=== PATIENT | male | born 1955 | race Caucasian/White ===

== ENCOUNTER 2023-07-04 18:58 | Inpatient (IN) | payer OTHER ==
[~2023-07-04] VITALS: Ht 182.9 cm; Wt 103.6 kg
[2023-07-04] MEDS ORDERED: Ondansetron HCl 2 MG / ML 2ML Vial ONE (19:24)
[2023-07-04] MEDS ORDERED: Ondansetron HCl 2 MG / ML 2ML Vial IV PRN ×2 (19:30→22:45)
[2023-07-04 19:39] LABS: BASOPHILS ABSOLUTE AUTO 0.18 K/mm3 (0.00-0.23); BASOPHILS PERCENT AUTO 1 % (0-2); EOSINOPHILS ABSOLUTE AUTO 0.06 K/mm3 (0.00-0.68); EOSINOPHILS PERCENT AUTO 0 % (0-6); Hematocrit 42.3 % (37.0-53.0); Hemoglobin 14.2 g/dL (13.5-17.5); IMMATURE GRAN ABSOLUTE AUTO 0.15 K/mm3 (0.00-0.10); IMMATURE GRAN PERCENT AUTO 1 % (0-1); LYMPHOCYTES ABSOLUTE AUTO 2.09 K/mm3 (0.84-5.20); LYMPHOCYTES PERCENT AUTO 7 % (21-46); MONOCYTES ABSOLUTE AUTO 3.18 K/mm3 (0.16-1.47); MONOCYTES PERCENT AUTO 11 % (4-13); Mean Corpuscular HGB 32.2 pg (26.0-34.0); Mean Corpuscular HGB Conc 33.6 g/dL (31.5-36.5); Mean Corpuscular Volume 96 fL (80-100); Mean Platelet Volume 9.7 fL (9.1-12.4); NEUTROPHILS ABSOLUTE AUTO 22.66 K/mm3 (1.96-9.15); NEUTROPHILS PERCENT AUTO 80 % (41-73); Platelet Count 696 K/mm3 (150-400); RDW Coefficient Variation 14.1 % (11.7-14.2); RDW Standard Deviation 49.8 fL (35.1-46.3); Red Blood Cell Count 4.41 M/mm3 (4.30-5.90); White Blood Cell Count 28.32 K/mm3 (4.00-11.30)
[2023-07-04 19:41] LABS: Source, Urine Clean Catch
[2023-07-04 19:44] LABS: Appearance, Urine Hazy (Clear); Bilirubin, Urine Neg (Neg); Blood, Urine 5+ (Neg); Color, Urine Yellow (P-Yellow); Glucose Qualitative, Urine 2+ (Neg); Ketones, Urine Neg (Neg); Leukocyte Esterase, Urine 3+ (Neg); Nitrite, Urine Pos (Neg); Protein, Urine 3+ (Neg); Specific Gravity, Urine 1.015 (1.003-1.022); Urobilinogen, Urine NORM (Normal)
[2023-07-04 19:51] LABS: Bacteria Many /hpf; Squamous Epithelial Cells Rare /hpf (Few); White Blood Cells, Urine 25-50 /hpf (0-5)
[2023-07-04] MEDS ORDERED: NS 1,000 ML IV SCH ×4 (20:05→22:50)
[2023-07-04] MEDS ORDERED: CefTRIAXone Sodium 1,000 MG in NS 50 ML IV ONE (20:10)
[2023-07-04 20:38] LABS: Albumin, Blood 3.4 g/dL (3.4-5.0); Albumin/Globulin Ratio 0.8 (0.8-1.8); Bilirubin, Total 0.6 mg/dL (0.1-1.0); Bun/Creatinine Ratio 18.8 (12.0-20.0); Calcium, Blood 9.6 mg/dL (8.5-10.1); Creatinine, Blood 2.02 mg/dL (0.60-1.20); Globulin, Blood 4.4 g/dL (2.2-4.0); Potassium, Blood 4.7 mmol/L (3.5-5.5); Total Protein, Blood 7.8 g/dL (6.4-8.2)
[2023-07-04] MEDS ORDERED: CEFP200 PO (21:14)
[2023-07-04] MEDS ORDERED: Oxybutynin Chlor5 M1 PO (21:15)
[2023-07-04] MEDS ORDERED: CYMBALTA20 M2 PO (21:15)
[2023-07-04] MEDS ORDERED: ATENOLOL25 MG PO (21:15)
[2023-07-04] MEDS ORDERED: Primidone50 MG PO (21:16)
[2023-07-04] MEDS ORDERED: TAMSULOSIN HCL0.4 M1 PO (21:16)
[2023-07-04] MEDS ORDERED: TRAZ50 PO (21:16)
[2023-07-04] MEDS ORDERED: LOSA50 PO (21:17)
[2023-07-04] MEDS ORDERED: JARDIANCE25 MG PO (21:17)
[2023-07-04] MEDS ORDERED: [UNRECOGNIZED DRUG - CODE] SL (21:17)
[2023-07-04] MEDS ORDERED: OXYC5 PO (21:17)
[2023-07-04] MEDS ORDERED: ATORVASTATIN CA20 MG PO (21:17)
[2023-07-04] MEDS ORDERED: METFORMIN HCL500 M3 PO (21:18)
[2023-07-04 21:38] LABS: Influenza A, PCR NEGATIVE (NEGATIVE); Influenza B, PCR NEGATIVE (NEGATIVE); Resp Syncytial Virus, PCR NEGATIVE (NEGATIVE); SARS-Cov-2 (COVID-19) PCR, MMC NEGATIVE (NEGATIVE)
[2023-07-04] MEDS ORDERED: Acetaminophen 325 MG TABLET PO PRN (22:45)
[2023-07-04] MEDS ORDERED: FentaNYL Citrate 50 MCG/ML 2 ML Injection IV PRN (22:45)
[2023-07-04] MEDS ORDERED: Enoxaparin 40 MG/0.4 ML SYR SC SCH (23:00)
[2023-07-04 23:09] VITALS: BP 142/93
[2023-07-04 23:30] LABS: International Normalized Ratio 1.07; Prothrombin Time Results 11.4 Sec (9.7-11.5)
[2023-07-05] MEDS ORDERED: OxyCODONE HCL 5 MG TAB PO PRN (00:15)
[2023-07-05] MEDS ORDERED: TraZODone HCl 50 MG Tab PO SCH (00:20)
[2023-07-05] MEDS ORDERED: Acetaminophen 325 MG TABLET PO ONE (00:20)
[2023-07-05 03:01] VITALS: BP 115/72
[2023-07-05 04:41] LABS: BASOPHILS ABSOLUTE AUTO 0.23 K/mm3 (0.00-0.23); BASOPHILS PERCENT AUTO 1 % (0-2); EOSINOPHILS PERCENT AUTO 0 % (0-6); Hematocrit 36.8 % (37.0-53.0); Hemoglobin 11.9 g/dL (13.5-17.5); IMMATURE GRAN ABSOLUTE AUTO 0.23 K/mm3 (0.00-0.10); IMMATURE GRAN PERCENT AUTO 1 % (0-1); LYMPHOCYTES ABSOLUTE AUTO 3.27 K/mm3 (0.84-5.20); LYMPHOCYTES PERCENT AUTO 10 % (21-46); MONOCYTES ABSOLUTE AUTO 5.37 K/mm3 (0.16-1.47); MONOCYTES PERCENT AUTO 17 % (4-13); Mean Corpuscular HGB 31.6 pg (26.0-34.0); Mean Corpuscular HGB Conc 32.3 g/dL (31.5-36.5); Mean Corpuscular Volume 98 fL (80-100); Mean Platelet Volume 9.9 fL (9.1-12.4); NEUTROPHILS PERCENT AUTO 71 % (41-73); Platelet Count 551 K/mm3 (150-400); RDW Coefficient Variation 14.3 % (11.7-14.2); RDW Standard Deviation 51.6 fL (35.1-46.3); Red Blood Cell Count 3.76 M/mm3 (4.30-5.90)
[2023-07-05 05:00] LABS: Albumin, Blood 2.9 g/dL (3.4-5.0); Albumin/Globulin Ratio 0.7 (0.8-1.8); Bilirubin, Total 0.4 mg/dL (0.1-1.0); Bun/Creatinine Ratio 15.7 (12.0-20.0); Calcium, Blood 8.6 mg/dL (8.5-10.1); Creatinine, Blood 2.04 mg/dL (0.60-1.20); Potassium, Blood 4.6 mmol/L (3.5-5.5); Total Protein, Blood 6.9 g/dL (6.4-8.2)
--- NOTE | 2023-07-05 05:28 | NUR ---
SHIFT SUMMARY NOC PT A/O X 4. PLEASANT AND COOPERATIVE WITH CARE. VSS. PT AFEBRILE. ADMIT FROM ED WITH SEPSIS/UTI. PT GOT TO FLOOR AND WAS HAD SEVERE CHILLS. WARM BLANKETS AND HEAT IN ROOM TURNED UP WHICH HELPED RELIEVE CHILLS. PT HAD L URETER STENT PLACE 06/15/23. PT WAS ABLE TO TRANSFER FROM [facility] WITH 2[facility], BUT AGREED BEDREST IS BETTER PLAN DUE TO EXTREME WEAKNESS. PT USING BEDSIDE URINAL INDEPENDENTLY. INFUSION OF NS @ 100 ML/HR X 1 BAG RUNNING. PT HOME PAIN RX AND SLEEPING RX ORDERED BY HOSPITALIST. PT WAS NPO UPON ADMIT TO FLOOR DUE TO ASPIRATION CONCERNS FROM N/V EARLIER IN DAY. PT HAS DENIED N/V DURING ASSESSMENT. NPO ORDER COMPLETED AND CARB CONSISTENT DIET ORDERED. PT ON TELE RUNNING SINUS TACH IN LOW 100'S AND 110'S. PT ON RA BASELINE BUT WITH TACHYPNEA PT FEELS MORE COMFORATABLE ON 2L/NC. PT HAS REDNESS IN BILATERAL GROIN FOLDS REPORTED TO BE FROM HUNTING IN GOTTI AND MOISTURE EXPOSURE. PT CURRENTLY RESTING WITH BED IN LOWEST POSITION. AND CALL LIGHT WITHIN REACH.
[2023-07-05 07:30] VITALS: BP 112/82
[2023-07-05] MEDS ORDERED: Insulin Human Lispro 100 Units/ML 3ML Syringe SC SCH (07:30)
[2023-07-05] MEDS ORDERED: DULoxetine HCL 20 MG Cap DR PO SCH (09:00)
[2023-07-05] MEDS ORDERED: Atenolol 25 MG Tab PO SCH (09:00)
[2023-07-05] MEDS ORDERED: Tamsulosin HCl 0.4 MG Cap PO SCH (09:00)
[2023-07-05] MEDS ORDERED: CefTRIAXone Sodium 1,000 MG in NS 100 ML IV SCH (09:00)
[2023-07-05] MEDS ORDERED: oxyBUTYnin chloride 5 MG TAB PO SCH (09:00)
--- NOTE | 2023-07-05 10:52 | NUR ---
CALL PLACED TO DR KENNEY, POSITIVE BLOOD AND URINE CX. NO NEW ORDERS, DOC STATED PATIENT SHOULD BE COVERED BY CURRENT ABX.
[2023-07-05 14:55] VITALS: BP 114/71
--- NOTE | 2023-07-05 16:36 | NUR ---
SHIFT SUMMARY PATIENT TOLERATING ABX WELL, EATING AND DRINKING ADEQUATELY. VOIDING USING URINAL. RED RASH TO GROIN, ANTIFUNGAL POWDER ORDERED. FAMILY IN TO SEE PATIENT THIS SHIFT. A/O X4. AGREEABLE TO CARES. MINIMAL C/O PAIN. VSS, AFEBRILE. ONE EPISODE OF TREMORS THIS SHIFT, STATES TO HAVE BASELINE FAMILIAL TREMOR. ABLE TO MAKE NEEDS KNOWN, CALL LIGHT IN REACH, CARES ONGOING.
[2023-07-05 20:31] VITALS: BP 115/72
[2023-07-05] MEDS ORDERED: Miconazole Nitrate 2% 85 GM PWD TOP SCH (21:00)
[2023-07-05] MEDS ORDERED: Primidone 50 MG Tab PO SCH (21:00)
[2023-07-06 03:18] VITALS: BP 128/83
[2023-07-06 04:33] LABS: BASOPHILS ABSOLUTE AUTO 0.19 K/mm3 (0.00-0.23); BASOPHILS PERCENT AUTO 1 % (0-2); EOSINOPHILS ABSOLUTE AUTO 0.34 K/mm3 (0.00-0.68); EOSINOPHILS PERCENT AUTO 1 % (0-6); IMMATURE GRAN ABSOLUTE AUTO 0.15 K/mm3 (0.00-0.10); IMMATURE GRAN PERCENT AUTO 1 % (0-1); LYMPHOCYTES ABSOLUTE AUTO 2.54 K/mm3 (0.84-5.20); LYMPHOCYTES PERCENT AUTO 10 % (21-46); MONOCYTES ABSOLUTE AUTO 3.99 K/mm3 (0.16-1.47); MONOCYTES PERCENT AUTO 15 % (4-13); Mean Corpuscular HGB Conc 32.4 g/dL (31.5-36.5); Mean Corpuscular Volume 99 fL (80-100); Mean Platelet Volume 9.7 fL (9.1-12.4); NEUTROPHILS PERCENT AUTO 73 % (41-73); Platelet Count 506 K/mm3 (150-400); RDW Coefficient Variation 14.4 % (11.7-14.2); RDW Standard Deviation 51.9 fL (35.1-46.3); Red Blood Cell Count 3.75 M/mm3 (4.30-5.90); White Blood Cell Count 26.21 K/mm3 (4.00-11.30)
[2023-07-06 04:56] LABS: Albumin, Blood 2.7 g/dL (3.4-5.0); Albumin/Globulin Ratio 0.6 (0.8-1.8); Bilirubin, Total 0.3 mg/dL (0.1-1.0); Bun/Creatinine Ratio 14.6 (12.0-20.0); Calcium, Blood 9.1 mg/dL (8.5-10.1); Creatinine, Blood 2.12 mg/dL (0.60-1.20); Globulin, Blood 4.5 g/dL (2.2-4.0); Potassium, Blood 4.3 mmol/L (3.5-5.5); Total Protein, Blood 7.2 g/dL (6.4-8.2)
--- NOTE | 2023-07-06 05:20 | NUR ---
SHIFT SUMMARY NOC PT A/O X 4. PLEASANT AND COOPERATIVE WITH CARE. VSS. PT HAD LOW GRADE FEVER AND GIVEN TYLENOL PT ON TELE RUNNING SINUS RHYTHM IN 80'S. PT ON RA BASELINE BUT PREFERS 2L/NC FOR SLEEPING. PT L FLANK PAIN MANAGED PER EMAR. PT STILL REPORTS FEELING VERY WEAK AND PREFERS BEDSIDE URINAL. PT CURRENTLY RESTING WITH BED IN LOWEST POSITION, AND CALL LIGHT WITHIN REACH.
[2023-07-06 07:29] VITALS: BP 134/80
[2023-07-06 15:26] VITALS: BP 126/84
--- NOTE | 2023-07-06 18:00 | NUR ---
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
[2023-07-06 19:32] VITALS: BP 137/86
[2023-07-06] MEDS ORDERED: Lactobacil 2-S.Thermo-Bifido 1 1 Cap PO SCH (21:00)
[2023-07-07 04:25] VITALS: BP 129/83
--- NOTE | 2023-07-07 04:25 | NUR ---
SHIFT SUMMARY ADMITTED FOR UTI/SEPSIS. FULL CODE. IV ANTIB RX ARE SCHEDULED. ADA DIET, ACHS CBG'S. TELEMETRY: NSR @ 74 BPM. ON RA, 2 LPM O2 @ HS. A&O X4. INDEPENDENT. HE DENIED PAIN THIS SHIFT. NO NEW CONCERNS THIS SHIFT.
[2023-07-07 05:04] LABS: Hematocrit 35.3 % (37.0-53.0); Hemoglobin 11.7 g/dL (13.5-17.5); Mean Corpuscular HGB 32.1 pg (26.0-34.0); Mean Corpuscular HGB Conc 33.1 g/dL (31.5-36.5); Mean Corpuscular Volume 97 fL (80-100); Platelet Count 479 K/mm3 (150-400); RDW Coefficient Variation 14.1 % (11.7-14.2); RDW Standard Deviation 50.1 fL (35.1-46.3); Red Blood Cell Count 3.64 M/mm3 (4.30-5.90); White Blood Cell Count 19.57 K/mm3 (4.00-11.30)
[2023-07-07 05:57] LABS: Albumin, Blood 2.7 g/dL (3.4-5.0); Anion Gap 9 mmol/L (3-11); Blood Urea Nitrogen 32 mg/dL (8-24); Bun/Creatinine Ratio 15.5 (12.0-20.0); CO2, Blood 24 mmol/L (21-32); Calcium, Blood 9.5 mg/dL (8.5-10.1); Chloride, Blood 108 mmol/L (98-108); Creatinine, Blood 2.06 mg/dL (0.60-1.20); Glomerular Filtration Rate 34 (60-); Glucose, Blood 119 mg/dL (70-99); Phosphorus, Blood 3.6 mg/dL (2.5-4.9); Potassium, Blood 4.3 mmol/L (3.5-5.5); Sodium, Blood 137 mmol/L (136-145)
[2023-07-07 07:30] VITALS: BP 119/78
[2023-07-07] MEDS ORDERED: Empagliflozin 10 MG TAB PO SCH (09:00)
[2023-07-07] MEDS ORDERED: Polyethylene Glycol 3350 17 gm PO PRN (13:45)
[2023-07-07] MEDS ORDERED: Docusate Sodium/Senna 1 Tab PO SCH (14:00)
[2023-07-07 16:31] VITALS: BP 134/88
--- NOTE | 2023-07-07 17:50 | NUR ---
NO ACUTE CHANGES, ALERT AND ORIENTED TO ALL, AMBULATED IN HALLS, STEADY GAIT. PER DR KENNEY WAITING FOR FINAL REPORT FROM THE , CULTERS POSITIVE. CASE MANAGEMENT SPOKE WITH PATIENT SO AND PATIENT LIVE IN [place]. TELEMETRY DC. CALL LIGHT WITH IN REACH, WILL RELAY TO PM RN
[2023-07-07 19:35] VITALS: BP 137/86
--- NOTE | 2023-07-08 04:29 | NUR ---
SHIFT SUMMARY. PATIENT IS AOX4. INDEPENDENT IN ROOM. PATIENT ADMITTED WITH SEVERE SEPSIS. PATIENT IS PLEASANT AND COOPERATIVE WITH CARE. PATIENT SLEPT WELL T/O NIGHT. PATIENT C/O SUSANNA; PAIN ASSESSED AND MEDICATED PER EMAR X1. PATIENT SLEPT T/O NIGHT WITH RESPIRATIONS EQUAL AND UNLABORED. PATIENT REPORTS CONCERNS OF BEING DISCHARGED BEFORE HE IS WELL ENOUGH. PATIENTS BED IS LOCKED IN THE LOWEST POSITION WITH CALL LIGHT IN REACH. NO S/S OF DISTRESS NOTED. CARE IS ONGOING.
[2023-07-08 04:34] VITALS: BP 126/88
[2023-07-08 05:53] LABS: Hematocrit 37.4 % (37.0-53.0); Hemoglobin 12.6 g/dL (13.5-17.5); Mean Corpuscular HGB 31.8 pg (26.0-34.0); Mean Corpuscular HGB Conc 33.7 g/dL (31.5-36.5); Mean Corpuscular Volume 94 fL (80-100); Platelet Count 494 K/mm3 (150-400); RDW Coefficient Variation 13.9 % (11.7-14.2); RDW Standard Deviation 48.4 fL (35.1-46.3); Red Blood Cell Count 3.96 M/mm3 (4.30-5.90); White Blood Cell Count 14.49 K/mm3 (4.00-11.30)
[2023-07-08 06:33] LABS: Albumin, Blood 2.8 g/dL (3.4-5.0); Anion Gap 10 mmol/L (3-11); Blood Urea Nitrogen 34 mg/dL (8-24); Bun/Creatinine Ratio 16.7 (12.0-20.0); CO2, Blood 24 mmol/L (21-32); Calcium, Blood 9.8 mg/dL (8.5-10.1); Chloride, Blood 106 mmol/L (98-108); Creatinine, Blood 2.03 mg/dL (0.60-1.20); Glomerular Filtration Rate 35 (60-); Glucose, Blood 129 mg/dL (70-99); Phosphorus, Blood 4.1 mg/dL (2.5-4.9); Potassium, Blood 4.4 mmol/L (3.5-5.5); Sodium, Blood 136 mmol/L (136-145)
[2023-07-08 07:32] VITALS: BP 126/88
[2023-07-08] MEDS ORDERED: NS 500 ML IV ONE (10:13)
[2023-07-08] MEDS ORDERED: Bisacodyl 5 MG TabEC PO PRN (11:40)
[2023-07-08] MEDS ORDERED: Bisacodyl 10 MG Supp PR PRN (11:40)
[2023-07-08] MEDS ORDERED: Witch Hazel/Glycerin PADS TOP PRN (12:20)
[2023-07-08 16:52] VITALS: BP 131/76
--- NOTE | 2023-07-08 18:35 | NUR ---
SUMMARY- PT A/O X 4, INDEPENDANT IN ROOM. AMBULATES TO BATHROOM, VOIDING BUT WAS UNSURE HE WAS EMPTYING HIS BLADDER. BLADDER SCAN AT 1830 WAS 208ML. TROUBLE HAVING BM TODAY, GIVEN LAXATIVE. GOT INITIAL STOOL IN RECTAL VAULT OUT WITH SOME RADHA ASSIST. AND THINKS THINGS ARE MOVING IN THE RIGHT DIRECTION AFTER LAXATIVE, BUT REQUESTED TUCKS PADS FOR HEMORROID RELEIF. PT HAVING MIN DISCOMFORT L URETER AREA, DECLINED TO HAVE PAIN MED ALL DAY. AWAITING BLOOD CX. WILL REPORT TO NOC RN
[2023-07-08 20:36] VITALS: BP 138/75
[2023-07-09 05:11] LABS: BASOPHILS ABSOLUTE AUTO 0.19 K/mm3 (0.00-0.23); BASOPHILS PERCENT AUTO 2 % (0-2); EOSINOPHILS ABSOLUTE AUTO 0.57 K/mm3 (0.00-0.68); EOSINOPHILS PERCENT AUTO 4 % (0-6); Hematocrit 38.3 % (37.0-53.0); Hemoglobin 12.6 g/dL (13.5-17.5); IMMATURE GRAN ABSOLUTE AUTO 0.06 K/mm3 (0.00-0.10); IMMATURE GRAN PERCENT AUTO 1 % (0-1); LYMPHOCYTES ABSOLUTE AUTO 4.07 K/mm3 (0.84-5.20); LYMPHOCYTES PERCENT AUTO 31 % (21-46); MONOCYTES ABSOLUTE AUTO 1.82 K/mm3 (0.16-1.47); MONOCYTES PERCENT AUTO 14 % (4-13); Mean Corpuscular HGB 31.7 pg (26.0-34.0); Mean Corpuscular HGB Conc 32.9 g/dL (31.5-36.5); Mean Corpuscular Volume 96 fL (80-100); Mean Platelet Volume 9.5 fL (9.1-12.4); NEUTROPHILS ABSOLUTE AUTO 6.37 K/mm3 (1.96-9.15); NEUTROPHILS PERCENT AUTO 49 % (41-73); Platelet Count 470 K/mm3 (150-400); RDW Coefficient Variation 13.9 % (11.7-14.2); RDW Standard Deviation 49.5 fL (35.1-46.3); Red Blood Cell Count 3.98 M/mm3 (4.30-5.90); White Blood Cell Count 13.08 K/mm3 (4.00-11.30)
[2023-07-09 05:33] LABS: Bun/Creatinine Ratio 17.1 (12.0-20.0); Calcium, Blood 9.8 mg/dL (8.5-10.1); Creatinine, Blood 2.4 mg/dL (0.60-1.20); Potassium, Blood 4.5 mmol/L (3.5-5.5)
[2023-07-09 05:39] VITALS: BP 114/83
[2023-07-09 07:35] VITALS: BP 115/80
--- NOTE | 2023-07-09 07:42 | NUR ---
MARKETING PROPOSAL COORDINATOR SUMMARY PT A&O X4, PLEASANT AND TALKATIVE. PT INDEPENDENT IN STACIE ROOM AND HALLWAYS. PT DID NOT REQUIRE HS S/S INSULIN COVERAGE. PT DECLINED ANY FURTHER BOWEL CARE REPORTING HE WAS NOT UNCOMFORTABLE AND WANTED TO WAIT, SUPPOSITIORY WAS OFFERED TONIGHT AND HE DECLINED. PT C/O L SIDE FLANK/ABDOMINAL PAIN. MEDICATED WITH OXY 5MG X 1 WITH GOOD RELIEF. PT SLEPT THROUGH THE NIGHT WITH NO ACUTE CHANGES. 07/09/23 JESSICA TIJERINA RN
[2023-07-09] MEDS ORDERED: ACET325 PO (10:20)
[2023-07-09] MEDS ORDERED: CEPH500 PO (10:20)
[2023-07-09] MEDS ORDERED: VISBIOME 112.51 EACH PO (10:20)
--- NOTE | 2023-07-09 11:57 | NUR ---
DISCHARGE NOTE: DISCUSSED DISCHARGE WITH PATIENT. HIS IV WAS REMOVED AND HIS BELONGINGS COLLECTED. DISCHARGE PAPERWORK PROVIDED AND PATIENT CALLED FOR HIS RIDE. PATIENT DECLINED TO BE WHEELED DOWN VIA WHEELCHAIR. NO SIGNS OR SYMPTOMS OF DISTRESS DURING DISCHARGE.
== END 2023-07-09 11:53 | disposition home or self-care (01) | DRG 698 ==
LOC: ER 18:58 → MEDS 18:59 → ENPENDDIS 07-09 10:43 → MEDS 07-09 11:53
PROVIDERS: Emergency Medicine; Family Medicine; Internal Medicine; Nurse Practitioner; ADMIT Internal Medicine
DX: T83.592A Infection and inflammatory reaction due to indwelling ureteral stent, initial encounter (principal); A41.50 Gram-negative sepsis, unspecified; R65.20 Severe sepsis without septic shock; N18.4 Chronic kidney disease, stage 4 (severe); N12 Tubulo-interstitial nephritis, not specified as acute or chronic; E11.22 Type 2 diabetes mellitus with diabetic chronic kidney disease; I12.9 Hypertensive chronic kidney disease with stage 1 through stage 4 chronic kidney disease, or unspecified chronic kidney disease; N40.0 Benign prostatic hyperplasia without lower urinary tract symptoms; E78.5 Hyperlipidemia, unspecified; Z87.442 Personal history of urinary calculi; Z87.19 Personal history of other diseases of the digestive system; Z79.899 Other long term (current) drug therapy; Z79.84 Long term (current) use of oral hypoglycemic drugs; Z88.0 Allergy status to penicillin; Y83.8 Other surgical procedures as the cause of abnormal reaction of the patient, or of later complication, without mention of misadventure at the time of the procedure
CPT/HCPCS: 0241U; 36415; 74177; 80048; 80053; 80069; 81001; 82947; 83605; 83880; 85025; 85027; 85610; 87040; 87077; 87086; 87186; 93005; 93010; 93306; 96361; 96374-59; 96375; 97161; 97530; 99285-25; A9270; G0378; J0696; J1650; J2405; J7030; J7040; Q9967